=== PATIENT | male | born 1955 | race Caucasian/White ===

== ENCOUNTER 2024-08-31 09:54 | Outpatient (REF) | payer MEDICARE, SELFPAY ==
[2024-08-31 10:27] LABS: MANUAL DIFF FLAG NO
[2024-08-31 11:29] LABS: Basophils Percent Auto 0.5 % (0-2); Eosinophils Absolute Auto 0.3 X10*3/uL (0.0-0.4); Eosinophils Percent Auto 3.2 % (0-4); Hemoglobin 14.3 g/dl (14.0-18.0); Imm Gran Abs Auto 0.04 X10*3/uL (0.00-0.03); Imm Gran Pct Auto 0.5 % (0.0-0.4); Lymphocytes Absolute Auto 2.2 X10*3/uL (1.2-4.9); Lymphocytes Percent Auto 28.2 % (20-40); Mean Corpuscular HGB Conc 35.8 g/dl (31.0-36.0); Mean Corpuscular Volume 86.6 fL (80.0-98.0); Mean Platelet Volume 9.7 fL (9.4-12.4); Monocytes Absolute Auto 0.7 X10*3/uL (0.1-1.2); Monocytes Percent Auto 8.5 % (2-11); Neutrophils Absolute Auto 4.6 x10*3/uL (2.0-8.3); Neutrophils Percent Auto 59.1 % (45-73); Platelet Count 343 X10*3/uL (160-400); Red Blood Count 4.62 X10*6/uL (4.60-5.80); Red Cell Distribution Width 11.9 % (11.0-16.0); White Blood Count 7.8 X10*3/uL (4.8-10.8)
[2024-08-31 12:07] LABS: Erythrocyte Sedimentation Rate 34 MM/HR (0-15)
[2024-08-31 12:17] LABS: Alanine Aminotransferase 18 U/L (0-40); Aspartate Amino Transferase 23 U/L (5-37); C Reactive Protein 1.98 mg/dL (< or = 0.50); Estimated Glomerular Filt Rate > 60
[2024-09-01 08:46] LABS: HBS Num1 0.76 mIU/mL (0-7.99); HBc Num1 0.13 S/CO (0.00-0.79); Hepatitis B Core Antibody Nonreactive (Nonreactive); Hepatitis B Surface Antigen Negative (Negative); ~HepC Num1 0.09 S/CO (0.00-0.79); ~Hepatitis B Surface Antibody NONREACTIVE (Nonreactive); ~Hepatitis C Antibody Nonreactive (Nonreactive)
[2024-09-03 11:09] LABS: TS Negative Control Passed; TS Panel A 3; TS Panel B 3; TS Positive Control Passed; TSpotTB Negative (Negative)
== END 2024-08-31 09:55 | disposition home or self-care (01) ==
LOC: HO.LAB 09:54
PROVIDERS: PCP Internal Medicine; Visit Provider Internal Medicine Rheumatology
DX: M06.9 Rheumatoid arthritis, unspecified (principal); Z79.899 Other long term (current) drug therapy
CPT/HCPCS: 36415; 82565; 84450; 84460; 85025; 85652; 86140; 86481; 86704; 86706; 86803; 87340

== ENCOUNTER 2024-09-11 10:20 | Outpatient (AMB) | payer MEDICARE, MEDICAID, SELFPAY ==
--- NOTE | 2024-09-11 10:40 | MHC.OFFVIS ---
Vital Signs 09/11/24 10:43 Height 5 ft 8 in Weight 189 lb 9.561 oz BMI 28.8 BP 150/80 H Blood Pressure Location Lt brachial Position Sitting Pulse 100 Pulse Source Pulse Oximeter Pulse Oximetry (%) 99 Oxygen Delivery Method Room Air Intake Visit Reasons: RA/ATC MR RECIEVED Intake Note: Patient presents for RA. Past three weeks I have been in lots of pain on both shoulders and neck. Swelling on both hands, both wrist and both feet. Can't sleep. Allergies No Known Allergies Allergy (Verified 09/11/24 10:44) HPI HPI RA/ATC MR RECIEVED: Details: He has not had Orencia infusion in 4 months. He had a high co-pay at [facility] and reports that he had a bili of 2000 dollars because insurance did not cover infusions. He reports that every infusion he asked if it was covered in was told that it was. He has limited function. Hands are swollen. Last week he had pain in his feet with walking. Symptoms got worse 2 weeks ago. He is unable to do anything. He is unable to cook for Thanksgiving because he can not use his hand. Morning stiffness lasting all day. No recent infections. [facility] Surgical History (Updated 09/11/24 @ 10:51 by CHAU Thacker) History of appendectomy History of surgery on right wrist Family History (Updated 09/11/24 @ 10:50 by CHAU Thacker) Mother History of arthritis Father History of COPD Social History (Updated 09/11/24 @ 10:48 by CHAU Thacker) Household Members: None Housing: House Alcohol intake: current Comment: [facility] Patient Tobacco Use Status: Current someday Tobacco user Tobacco use type: Cigarette Cigarettes Per Day: 0.25 Years Smoked: 40 Review of Systems Const All systems reviewed & are unremarkable except as noted in HPI and below Physical Exam Vital Signs: Last Vital Signs Pulse 100 09/11/24 10:43 BP 150/80 H 09/11/24 10:43 Pulse Ox 99 09/11/24 10:43 Oxygen Delivery Method Room Air 09/11/24 10:43 BMI result Body Mass Index 28.8 Const Other: General: Comfortable CVS: RRR Respiratory: clear to auscultation bilaterally. Good respiratory effort Skin: No lesions seen MSK: Synovitis of bilateral MCPs, PIP knees and wrists. Unable to make a fist with hands. Unable to extend or flex wrist due to pain. He is unable to abduct bilateral shoulders above 90 degrees due to pain. Tender bilateral shoulders. Tender bilateral knees and ankles. Knee flexion is 45 degrees limited due to pain. No MTP tenderness. Results Reviewed Results Reviewed: Labs from 09/04/2024 reviewed in EMR. Elevated inflammatory markers. Assessment & Plan Assessment & Plan (1) Rheumatoid arthritis: Comment: History of rheumatoid arthritis failed methotrexate and was well controlled on Orencia infusion since 2016. He has not had Orencia infusion in 4 months. In the past he did not tolerate leflunomide, which he took from 02/03/2024 to 03/04/2024 due to constipation. Inflammatory arthritis is uncontrolled off of Orencia infusion. He has limited function. Code(s): M06.9 - Rheumatoid arthritis, unspecified Category: Medical Plan: I have ordered Orencia infusion through the infusion center 09/09/2024. I have sent a message to clinical staff to contact infusion center to expedite scheduling. If insurance does not cover Orencia infusion, we will try to do PA for an Orencia sure click subcutaneous injection. Labs up-to-date for drug monitoring and high-risk medication Start prednisone 20 mg daily take with food Start GI prophylaxis omeprazole 20 mg daily while on prednisone Return to clinic in 1 month (2) Other snf (current) drug therapy: Code(s): Z79.899 - Other snf (current) drug therapy Category: Medical Plan: See above Medications: New prednisone Take 1 tablet daily with food 20 mg PO DAILY 30 tabs 1RF M06.9 - Rheumatoid arthritis, unspecified, Z79.899 - Other dedicated intermodal truck driver (current) drug therapy omeprazole Take 1 tablet daily in the morning on an empty stomach while on prednisone 20 mg PO DAILY 30 caps 2RF Coding Level of Care Code Est Pt Level 4 (44742) Complex EM visit Add On G2211 Diagnoses Rheumatoid arthritis M06.9 Other dedicated intermodal truck driver (current) drug therapy Z79.899
[2024-09-11 10:43] VITALS: BP 150/80; PULSE 100; O2SAT 99; BMI 28.8
== END 2024-09-11 11:17 | disposition home or self-care (01) ==
PROVIDERS: PCP Internal Medicine; Visit Provider Internal Medicine Rheumatology
DX: M06.9 Rheumatoid arthritis, unspecified (principal); Z79.899 Other long term (current) drug therapy
CPT/HCPCS: 99214; G2211

== ENCOUNTER → 2024-09-11 10:20 | Outpatient (BNVA) | payer MEDICARE, MEDICAID, SELFPAY | PROVIDERS: PCP Internal Medicine; Visit Provider Internal Medicine Rheumatology | DX: M06.9 Rheumatoid arthritis, unspecified (principal); Z79.899 Other long term (current) drug therapy | CPT/HCPCS: 99212 ==

== ENCOUNTER 2025-01-07 10:14 | Outpatient (REF) | payer MEDICARE, SELFPAY ==
[2025-01-07 18:03] LABS: MANUAL DIFF FLAG NO
[2025-01-07 18:29] LABS: Basophils Percent Auto 0.5 % (0-2); Eosinophils Absolute Auto 0.3 X10*3/uL (0.0-0.4); Eosinophils Percent Auto 4.5 % (0-4); Hematocrit 40.4 % (42.0-52.0); Hemoglobin 13.8 g/dl (14.0-18.0); Imm Gran Abs Auto 0.01 X10*3/uL (0.00-0.03); Imm Gran Pct Auto 0.2 % (0.0-0.4); Lymphocytes Absolute Auto 2.8 X10*3/uL (1.2-4.9); Lymphocytes Percent Auto 41.5 % (20-40); Mean Corpuscular HGB Conc 34.2 g/dl (31.0-36.0); Mean Corpuscular Hemoglobin 29.8 pg (27.0-33.0); Mean Corpuscular Volume 87.3 fL (80.0-98.0); Mean Platelet Volume 10.3 fL (9.4-12.4); Monocytes Absolute Auto 0.5 X10*3/uL (0.1-1.2); Monocytes Percent Auto 8.1 % (2-11); Neutrophils Percent Auto 45.2 % (45-73); Platelet Count 314 X10*3/uL (160-400); Red Blood Count 4.63 X10*6/uL (4.60-5.80); Red Cell Distribution Width 12.8 % (11.0-16.0); White Blood Count 6.6 X10*3/uL (4.8-10.8)
[2025-01-07 18:47] LABS: Alanine Aminotransferase 19 U/L (0-40); Aspartate Amino Transferase 21 U/L (5-37); C Reactive Protein 0.64 mg/dL (< or = 0.50); Estimated Glomerular Filt Rate > 60
[2025-01-07 19:59] LABS: Erythrocyte Sedimentation Rate 23 MM/HR (0-15)
== END 2025-01-07 10:15 | disposition home or self-care (01) ==
LOC: HO.HKASLDS 10:14
PROVIDERS: PCP Internal Medicine; Visit Provider Internal Medicine Rheumatology
DX: Z79.60 Long term (current) use of unspecified immunomodulators and immunosuppressants (principal); Z79.899 Other long term (current) drug therapy
CPT/HCPCS: 36415; 82565; 84450; 84460; 85025; 85652; 86140; 99212

== ENCOUNTER 2025-01-07 10:14 | Outpatient (AMB) | payer MEDICARE, MEDICAID, SELFPAY ==
--- NOTE | 2025-01-07 10:17 | MHC.OFFVIS ---
Vital Signs 01/07/25 10:21 Weight 194 lb 10.691 oz BP 150/82 H Pulse 72 Pulse Source Pulse Oximeter Pulse Oximetry (%) 97 Oxygen Delivery Method Room Air Intake Visit Reasons: follow up Intake Note: Patient presents for RA. Allergies No Known Allergies Allergy (Verified 01/07/25 10:22) [facility] HPI follow up: Details: He had increased joint pain and stiffness in September where he had difficulty getting out of bed. He only took prednisone for a couple of days with relief and he was able to walk. 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 After last infusion he has noted a decrease in pain and swelling. No new infections. [facility] Surgical History History of appendectomy History of surgery on right wrist Family History Mother History of arthritis Father History of COPD Social History Household Members: None Housing: House Alcohol intake: current Comment: [facility] Patient Tobacco Use Status: Current someday Tobacco user Tobacco use type: Cigarette Cigarettes Per Day: 0.25 Years Smoked: 40 Review of Systems Const All systems reviewed & are unremarkable except as noted in HPI and below Physical Exam Vital Signs: Last Vital Signs Pulse 72 01/07/25 10:21 BP 150/82 H 01/07/25 10:21 Pulse Ox 97 01/07/25 10:21 Oxygen Delivery Method Room Air 01/07/25 10:21 Const Other: General: Comfortable CVS: RRR Respiratory: clear to auscultation bilaterally. Good respiratory effort Skin: No lesions seen MSK: Synovitis of bilateral right 2nd and 3rd PIP and left 2-4 PIPs and bilateral wrists. Chronic synovial thickening of bilateral MCPs. He is able to make a fist with both hands. Shoulder abduction 160 degrees bilateral. Tender bilateral shoulders. Tender bilateral knees and ankles. Knee flexion is 90 degrees limited due to pain. No MTP tenderness. Assessment & Plan Assessment & Plan (1) Rheumatoid arthritis: Comment: He continues to have polyarthritis but better controlled since being on Orencia infusion. He is fearful of long-term side effects on prednisone. He agreed to try Depo-Medrol this visit. Rheumatology history: History of rheumatoid arthritis failed methotrexate and was well controlled on Orencia infusion since 2016. In the past he did not tolerate leflunomide, which he took from 02/03/2024 to 03/04/2024 due to constipation. Code(s): M06.9 - Rheumatoid arthritis, unspecified Category: Medical Plan: Continue Orencia infusion every 4 weeks IV Labs for disease monitoring and drug monitoring on high-risk medication due today Depo-Medrol 120 mg IM today Return to clinic in 3 months (2) Other nursing home (current) drug therapy: Code(s): Z79.899 - Other nursing home (current) drug therapy Category: Medical Plan: See above Orders: Orders Complete Blood Count Auto Diff Today Z79.60 - superintendent terminal (current) use of unspecified immunomodulators and immunosuppressants C Reactive Protein Today Z79.899 - Other termite exterminator (current) drug therapy Alanine Aminotransferase Today Z79.60 - superintendent terminal (current) use of unspecified immunomodulators and immunosuppressants Creatinine Today Z79.60 - prison (current) use of unspecified immunomodulators and immunosuppressants Aspartate Amino Transferase Today Z79.60 - superintendent terminal (current) use of unspecified immunomodulators and immunosuppressants Erythrocyte Sedimentation Rate Today Z79.899 - Other nursing home (current) drug therapy Coding Level of Care Code Est Pt Level 4 (59799) Complex EM visit Add On G2211 Diagnoses Rheumatoid arthritis M06.9 Other termite exterminator (current) drug therapy Z79.899
[2025-01-07 10:21] VITALS: BP 150/82; PULSE 72; O2SAT 97
--- OUTSIDE RECORDS SUMMARY | 2025-01-07 12:17 | XMS_ITS | Clinical Summary ---
Author Organization 175 [facility] Address [address] [place] [address] Phone Care Team Providers Care Full Time Name Role Phone Chiqui Cummings MD Primary Care Provider [phone] Allergies Active Allergy Reactions Criticality Noted Date Comments Bee Venom Protein (Honey Bee) 2017 Medications abatacept (ORENCIA) 25 mg/mL injection Inject 250 mg into the vein See Admin Instructions . 9 Active albuterol HFA (PROAIR HFA ; PROVENTIL HFA ; VENTOLIN HFA) 90 mcg/actuation inhaler Inhale 2 Puffs into the lungs every 4 hours as needed for Cough or Wheezing. 0 Active omeprazole (PriLOSEC) [address] capsule Take 1 Capsule by mouth daily for 360 days. 2 Active polyethylene glycol 1000,bulk, powder DISSOLVE 17 GRAMS IN LIQUID AND TAKE BY MOUTH EVERY DAY 2 Active atorvastatin (LIPITOR) 20 mg tablet Take 1 tablet (20 mg total) by mouth at bedtime. 90 tablet 3 4 Active losartan (COZAAR) 100 mg tablet Take 1 tablet (100 mg total) by mouth 1 (one) time each day. 90 tablet 5 4 Active fluticasone-um eclidinium-chirag anterol (Trelegy Ellipta) 200-62.5-25 mcg inhaler INHALE 1 PUFF INTO THE LUNGS DAILY 1 each 4 025 Active ALPRAZolam (XANAX) 0.5 mg tablet Take 1 tablet (0.5 mg total) by mouth 3 (three) times a day if needed for anxiety. Max Daily Amount: 1.5 mg 56 tablet 1 5 Active traMADoL (ULTRAM) 50 mg tablet Take 1 tablet (50 mg total) by mouth every 6 (six) hours if needed for severe pain. Max Daily Amount: 200 mg 28 tablet 1 5 Active traMADoL (ULTRAM) 50 mg tabletIndicati ons:pain Take 1 tablet (50 mg total) by mouth 1 (one) time each day if needed for severe pain. Max Daily Amount: 50 mg 28 tablet 4 025 Discontinued Active Problems Problem Noted Date Diagnosed Date Hyperlipidemia 07/29/2022 Hypertension 07/29/2022 Prediabetes 07/29/2022 Aorta aneurysm 12/02/2020 Colon polyps 05/07/2018 Lymphadenopathy, hilar 04/20/2018 Esophageal reflux 02/09/2017 Rosacea 02/09/2017 Rheumatoid arthritis 02/09/2017 Vitamin D deficiency 01/30/2015 Anxiety 12/30/2013 Lower back pain 11/27/2013 Immunizations Name Administration Dates Next Due Influenza trivalent, 0.5mL (Fluad) 65yo and olde r 07/29/2022,07/10/2020 Influenza trivalent, 0.5mL, preservative free (Fluarix; FluLaval; Fluzone) ages 6mo and older (Afluria) 3 years and older 08/04/2016,07/22/2014 PPD Test 01/18/2010 Pneumococcal conjugate 13 va lent (Prevnar 13, PCV13) 2mo and older 02/12/2018 Medical History Medical History Date Comments Hypertension 07/29/2022 DX:Hypertension Hyperlipidemia 07/29/2022 DX:Hyperlipidemi a Social History Tobacco Use Types Packs/Day Years Used Date Smoking Tobacco: Every Day Cigarettes Last attempted to quit: 04/12/2021 Smokeless Tobacco: Never Alcohol Use Standard Drinks/Week Comments Yes 10 (1 standard drink = 0.6 oz pu re alcohol) Sex and Gender Information Value Date Recorded Sex Assigned at Not on file Legal Sex Male 10:43 AM EST Gender Identity Not on file Sexual Orientation Not on file Obstetrics History Last Filed Vital Signs Vital Sign Reading Time Taken Comments Blood Pressure 123/70 09/09/2024 9:43 AM EST Pulse 95 09/09/2024 9:39 AM EST Temperature 37.2 ??C (98.9 ??F) 09/09/2024 9:39 AM ES T Respiratory Rate - - Oxygen Saturation 96% 09/09/2024 9:39 AM EST Inhaled Oxygen Concentration - - Weight 84.4 kg (186 lb) 09/09/2024 9:39 AM EST Height 172.7 cm (5' 8 ) 09/09/2024 9:39 AM EST Body Mass Index 28.28 09/09/2024 9:39 AM EST Plan of Treatment Upcoming Encounters Date Type Department Care Team (Late st Contact Info) Description 03/12/2025 9:30 AM EDT Office Visit Internal Medicine - [place] [address] [phone] Chiqui Cummings MD [address] [phone] 08/07/2025 9:45 AM EDT Office Visit Pulmonolgy - [place] [address] [phone] Ines Magana MD [address] [phone] Health Maintenance Due Date Last Done Comments DTaP,Tdap,and Td Vaccines (1 - Tdap) 1974 Zoster Vaccines (1 of 2) 2005 RSV Immunization Patients 60+ Years Old (1 - Risk 60-74 years 1-dose series) 2015 Pneumococcal Vaccine: 50+ Years (2 of 2 - PPSV23) 04/09/2018 02/12/2018 Social Influencers of Health Screening 09/24/2022 COVID-19 Vaccine ( - season) 2024 09/21/2021, 02/08/2021, 01/18/2021 Hypertension/CHF/CAD Annual BMP Blood Test 07/31/2024 07/31/2023 Depression Screening 09/09/2025 09/09/2024, 08/17/20 Falls Risk Assessment 09/09/2025 09/09/2024 Medicare Annual Wellness Visit 09/09/2025 09/09/2024 Cholesterol Screening (Lipid Panel) 07/31/2028 07/31/2023 Colorectal Cancer Screening: Colonoscopy 01/17/2029 01/18/2024 Abdominal Aortic Aneurysm (AAA) Screen Completed 12/08/2021 Hepatitis C Screening Completed 07/31/2023 Influenza Vaccine Completed 07/12/2024, , 07/10/2020, Additional history exists HIB Vaccines Aged Out No longer eligi ble based on patient's age to complete this topic HPV Vaccines Aged Out No longer eligi ble based on patient's age to complete this topic Hepatitis A Vaccines Aged Out No long er eligible based on patient's age to complete this topic Hepatitis B Vaccines Aged Out No long er eligible based on patient's age to complete this topic IPV Vaccines Aged Out No longer eligi ble based on patient's age to complete this topic MMR Vaccines Aged Out No longer eligi ble based on patient's age to complete this topic Meningococcal ACWY Vaccine Aged Out N o longer eligible based on patient's age to complete this topic Meningococcal B Vacine Aged Out No lo nger eligible based on patient's age to complete this topic RSV Immunization Patients Under 20 months Aged Out No longer eligible based on patient's age to complete this topic Varicella Vaccines Aged Out No longer eligible based on patient's age to complete this topic Procedures Procedure Name Priority Date/Time Associated Diagnosis Comments COLONOSCOPY Routine 01/18/2024 DEPRESSION SCREENING Routine 08/17/2023 HEPATITIS C SCREENING Routine 07/31/2023 ANNUAL BMP BLOOD TEST Routine 07/31/2023 LIPID PANEL Routine 07/31/2023 ABDOMINAL AORTIC ANEURYSM SCRREN Routine 12/08/2021 from Last 3 Months or Most Recently Relevant to Health Maintenance Results * Colonoscopy (01/18/2024) Pathologist [facility] Colonoscopy NO INTERPRETATION , ABSTRACTED Anatomical Region Laterality Modality Other [facility] Provider HEALTH MAINTENANCE Final Result * Depression Screening (08/17/2023) Pathologist [facility] Depression Screening ABSTRACTED [facility] Provider HEALTH MAINTENANCE Final Result * Annual BMP Blood Test (07/31/2023) Pathologist [facility] Annual BMP Blood Test ABSTRACTED [facility] Provider HEALTH MAINTENANCE Final Result * Hepatitis C Screening (07/31/2023) [facility] Hepatitis C Screening ABSTRACTED Result [facility] Provider HEALTH MAINTENANCE Final Result * Lipid panel (07/31/2023) [facility] LDL/HDL Ratio 3 0 - 4 Triglycerides 59 0 - 150 mg/dL Cholesterol 151 0 - 200 mg/dL HDL 58 >=40 mg/dL LDL Cholesterol 82 0 - 100 mg/dL Blood Venous blood specimen / Unknown Result [facility] Provider LAB BLOOD ORDERABLES Corie l Result * Abdominal Aortic Aneurysm Screen (12/08/2021) Pathologist [facility] Abdominal Aortic Aneurysm (AAA) Screening ABSTRACTED Anatomical Region Laterality Modality Other Result [facility] Provider HEALTH MAINTENANCE Final Result from Last 3 Months or Most Recently Relevant to Health Maintenance Insurance [employer] [place] Care Teams Full Time Relationship Specialty Start Date End Date Chiqui Cummings MD [address] [place] [phone] PCP - General Internal Medicine 08/28/20
--- OUTSIDE RECORDS SUMMARY | 2025-01-07 12:17 | XMS_ITS | Clinical Summary ---
Author Organization [facility] Address [address] [place] [address] Care Team Providers Care Rfid Systems Architect Name Role Phone Chiqui Cummings MD Primary Care Provider [phone] Allergies No known active allergies Medications Medication Sig Dispensed Refills Start Date End Date Status traMADol (ULTRAM) 50 MG tablet Take 50 mg by mouth 2 (two) times a day as needed. 0 10/07/2022 Active losartan (COZAAR) tablet 50 mg Take 1 tablet (50 mg total) by mouth daily. 0 08/10/2022 Active ALPRAZolam (XANAX) 0.5 MG tablet Take 1 tablet (0.5 mg total) by mouth 2 (two) times a day. 0 10/12/2022 Active atorvastatin (LIPITOR) tablet 20 mg Take 1 tablet (20 mg total) by mouth daily. 0 08/10/2022 Active Trelegy Ellipta 200-62.5-25 MCG/ACT AEPB INHALE 1 PUFF INTO THE LUNGS DAILY 0 10/12/2022 Active omeprazole (PriLOSEC) 20 MG capsule Take 1 capsule (20 mg total) by mouth daily. 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 Rheumatoid arthritis with rheumatoid factor 06/2022 Social History Tobacco Use Types Packs/Day Years Used Date Smoking Tobacco: Never Assessed Sex and Gender Information Value Date Recorded Sex Assigned at Male 03/09/2022 2:52 PM EDT Gender Identity Not on file Sexual Orientation Not on file Job Start Date Occupation Industry Not on file Not on file Not on file Last Filed Vital Signs Vital Sign Reading Time Taken Comments Blood Pressure 152/76 06/30/2023 2:29 PM EDT Pulse 80 06/30/2023 2:29 PM EDT Temperature 35.8 ??C (96.5 ??F) 06/30/2023 2:29 PM ED T Respiratory Rate 18 06/30/2023 2:29 PM EDT Oxygen Saturation 99% 06/30/2023 2:29 PM EDT ROOM AIR Inhaled Oxygen Concentration - - Weight 84.9 kg (187 lb 3.2 oz) 06/02/2023 1:56 P M EDT Height 172.7 cm (5' 7.99 ) 11/11/2022 1:47 PM ES T Body Mass Index 28.47 11/11/2022 1:47 PM EST Plan of Treatment Health Maintenance Due Date Last Done Comments Hepatitis C Screening 1955 COVID-19 Vaccine (#1) 1955 Depression Screening 1967 Preventative Health Evaluation 1973 DTap / Tdap / Td (1 - Tdap) 1974 Colon Cancer Screening (Colonoscopy) 02/28/2000 Shingrix-Zoster Vaccine (1 o f 2) 2005 Fall Risk Assessment 02/28/2020 Pneumococcal Vaccine (2 of 2 - PPSV23 or PCV20) 02/28/2020 02/12/2018 Influenza Vaccine (#1) 2024 2, 07/10/2020 RSV Adult > 60+ Yrs or (1 - 1-dose 75+ series) 2030 Hepatitis B Vaccines Aged Out No long er eligible based on patient's age to complete this topic RSV Ped < 20 months Aged Out No longe r eligible based on patient's age to complete this topic Care Teams Rfid Systems Architect Relationship Specialty Start Date End Date Chiqui Cummings MD [address] [phone] PCP - General Internal Medicine 03/09/22
--- NOTE | 2025-01-07 12:29 | AM.OFFVISNUR ---
Vital Signs 01/07/25 10:21 Weight 194 lb 10.691 oz BP 150/82 H Pulse 72 Pulse Source Pulse Oximeter Pulse Oximetry (%) 97 Oxygen Delivery Method Room Air Intake Visit Reasons: follow up Allergies No Known Allergies Allergy (Verified 01/07/25 10:22) Nursing Note Depo Medrol IM injection 80 mg Single dose vial Lot [id number] Expiration 03/2026 injected into Right Deltoid Depo Medrol IM Injection 40 mg Single dose vial [id number] Expiration 03/2026 injected into Left Deltoid [facility] Di [facility]AN, RN Patient tolerated procedure well. No injection site reaction noted. Assessment & Plan Assessment & Plan (1) Rheumatoid arthritis: Comment: He continues to have polyarthritis but better controlled since being on Orencia infusion. He is fearful of long-term side effects on prednisone. He agreed to try Depo-Medrol this visit. Rheumatology history: History of rheumatoid arthritis failed methotrexate and was well controlled on Orencia infusion since 2015. In the past he did not tolerate leflunomide, which he took from 02/03/2024 to 03/04/2024 due to constipation. Code(s): M06.9 - Rheumatoid arthritis, unspecified Category: Medical (2) Other intermodal dispatcher (current) drug therapy: Code(s): Z79.899 - Other residential (current) drug therapy Category: Medical Orders: Orders Complete Blood Count Auto Diff Today Z79.60 - remote computer terminal operator (current) use of unspecified immunomodulators and immunosuppressants C Reactive Protein Today Z79.899 - Other intermodal dispatcher (current) drug therapy Alanine Aminotransferase Today Z79.60 - remote computer terminal operator (current) use of unspecified immunomodulators and immunosuppressants Creatinine Today Z79.60 - remote computer terminal operator (current) use of unspecified immunomodulators and immunosuppressants Aspartate Amino Transferase Today Z79.60 - skilled nursing (current) use of unspecified immunomodulators and immunosuppressants Erythrocyte Sedimentation Rate Today Z79.899 - Other residential (current) drug therapy Coding Diagnoses Rheumatoid arthritis M06.9 Other intermodal dispatcher (current) drug therapy Z79.899
== END 2025-01-07 11:00 | disposition home or self-care (01) ==
LOC: HO.RHES 10:15
PROVIDERS: PCP Internal Medicine; Visit Provider Internal Medicine Rheumatology
DX: M06.9 Rheumatoid arthritis, unspecified (principal); Z79.899 Other long term (current) drug therapy
CPT/HCPCS: 99214; G2211

== ENCOUNTER 2025-06-18 09:29 | Outpatient (REF) | payer MEDICARE, SELFPAY ==
[2025-06-18 13:02] LABS: MANUAL DIFF FLAG NO
[2025-06-18 13:10] LABS: Hematocrit 38.5 % (42.0-52.0); Hemoglobin 13.7 g/dl (14.0-18.0); Imm Gran Abs Auto 0.04 X10*3/uL (0.00-0.03); Imm Gran Pct Auto 0.8 % (0.0-0.4); Lymphocytes Absolute Auto 2.3 X10*3/uL (1.2-4.9); Mean Corpuscular HGB Conc 35.6 g/dl (31.0-36.0); Mean Corpuscular Hemoglobin 30.6 pg (27.0-33.0); Mean Corpuscular Volume 86.1 fL (80.0-98.0); NRBC Abs Auto 0.000 X10*3/uL (0.0-0.012); NRBC Pct Auto 0.0 /100WBC (0.0-0.2); Platelet Count 288 X10*3/uL (160-400); Red Blood Count 4.47 X10*6/uL (4.60-5.80); White Blood Count 5.2 X10*3/uL (4.8-10.8)
[2025-06-18 13:52] LABS: Alanine Aminotransferase 20 U/L (0-40); Aspartate Amino Transferase 25 U/L (5-37); Estimated Glomerular Filt Rate > 60
== END 2025-06-18 09:30 | disposition home or self-care (01) ==
LOC: HO.HKASLDS 09:29
PROVIDERS: PCP Internal Medicine; Visit Provider Internal Medicine Rheumatology
DX: M06.9 Rheumatoid arthritis, unspecified (principal); M25.511 Pain in right shoulder; M25.512 Pain in left shoulder; Z51.81 Encounter for therapeutic drug level monitoring; Z79.899 Other long term (current) drug therapy; Z79.631 Long term (current) use of antimetabolite agent
CPT/HCPCS: 36415; 82565; 84450; 84460; 85025; 85652; 86140; 99212

== ENCOUNTER 2025-06-18 09:29 | Outpatient (AMB) | payer MEDICARE, SELFPAY ==
[2025-06-18 09:41] VITALS: BP 140/90; PULSE 71; O2SAT 99; BMI 29.9
--- NOTE | 2025-06-18 09:41 | A.OFFVIS_ITS ---
Vital Signs 06/18/25 09:41 Height 5 ft 8 in Weight 196 lb 13.965 oz BMI 29.9 BP 140/90 H Blood Pressure Location Rt brachial Position Sitting Pulse 71 Pulse Source Pulse Oximeter Pulse Oximetry (%) 99 Oxygen Delivery Method Room Air Intake Visit Reasons: follow up Intake Note: Patient presents for RA. Accompanied by: Self / Same As Patient Allergies No Known Allergies Allergy (Verified 01/07/25 10:22) HPI HPI follow up: Details: He had benefit with depomedrol. Hand stiffness hours. He has pain in shoulders. Improved with stretching. [facility] Surgical History History of appendectomy History of surgery on right wrist Family History Mother History of arthritis Father History of COPD Social History Household Members: None Housing: House Alcohol intake: current Comment: OCC Patient Tobacco Use Status: Current someday Tobacco user Tobacco use type: Cigarette Cigarettes Per Day: 0.25 Years Smoked: 40 Physical Exam Vital Signs: Last Vital Signs Pulse 71 06/18/25 09:41 BP 140/90 H 06/18/25 09:41 Pulse Ox 99 06/18/25 09:41 Oxygen Delivery Method Room Air 06/18/25 09:41 BMI result Body Mass Index 29.9 Const Other: General: Comfortable CVS: RRR Respiratory: clear to auscultation bilaterally. Good respiratory effort Skin: No lesions seen MSK: Synovitis of bilateral right 2nd and 3rd PIP with tenderness. Chronic synovial thickening has resolved. Dorsal wrist right ganglion cyst present. He is able to make a fist with both hands. Shoulder abduction 160 degrees bilateral. Tender bilateral shoulders. Knee flexion is 90 degrees limited due to pain. No MTP tenderness. Assessment & Plan Assessment & Plan (1) Rheumatoid arthritis: Comment: Inflammatory arthritis has improved after Depo-Medrol. We discussed next steps with add on DMARD therapy. Discussed side effects, benefits and drug monitoring on methotrexate. Rheumatology history: History of rheumatoid arthritis failed methotrexate and was well controlled on Orencia infusion since 2016. In the past he did not tolerate leflunomide, which he took from 02/03/2024 to 03/04/2024 due to constipation. He has been fearful of long-term side effect on prednisone. Depo-Medrol provided benefit in the past. Code(s): M06.9 - Rheumatoid arthritis, unspecified Category: Medical Plan: Continue Orencia infusion every 4 weeks IV Labs for disease monitoring and drug monitoring on high-risk medication due today. After lab results are back, we will send prescription for methotrexate 12.5 mg once weekly and folic acid 1 mg daily. He we will need labs 4 weeks after starting methotrexate Information on methotrexate given to patient Return to clinic in 3 months (2) Other prison (current) drug therapy: Code(s): Z79.899 - Other prison (current) drug therapy Category: Medical Plan: See above (3) Bilateral shoulder pain: Comment: Differential diagnosis includes chronic rotator cuff tendinopathy versus osteoarthritis Code(s): M25.511 - Pain in right shoulder; M25.512 - Pain in left shoulder Category: Medical Plan: X-ray bilateral shoulders ordered PT ordered Orders: Orders Alanine Aminotransferase Today Z79.899 - Other prison (current) drug therapy Erythrocyte Sedimentation Rate Today Z79.899 - Other prison (current) drug therapy PT Evaluation and Treatment Today M25.511 - Pain in right shoulder, M25.512 - Pain in left shoulder Complete Blood Count Auto Diff Today Z79.899 - Other prison (current) drug therapy Aspartate Amino Transferase Today Z79.899 - Other intermediate frame tender (current) drug therapy Creatinine Today Z79.899 - Other intermediate frame tender (current) drug therapy C Reactive Protein Today Z79.899 - Other intermediate frame tender (current) drug therapy XR Shoulder Timo min 2V Today M06.9 - Rheumatoid arthritis, unspecified, M25.511 - Pain in right shoulder, M25.512 - Pain in left shoulder XR Hand Bilat min 3v Today M06.9 - Rheumatoid arthritis, unspecified XR Foot Timo 3V Today M06.9 - Rheumatoid arthritis, unspecified, M25.511 - Pain in right shoulder, M25.512 - Pain in left shoulder Coding Level of Care Code Est Pt Level 4 (78997) Complex EM visit Add On G2211 Diagnoses Rheumatoid arthritis M06.9 Other prison (current) drug therapy Z79.899 Bilateral shoulder pain M25.511; M25.512
--- OUTSIDE RECORDS SUMMARY | 2025-06-18 10:17 | XMS_ITS | Encounter Summary ---
Author Organization [facility] Address [address] [place] [address] Care Team Providers Care Retail Special Event Associate Name Role Phone Chiqui Cummings MD Primary Care Provider [phone] Reason for Referral * Consultation (Routine) - Authorized Specialty Diagnoses / Procedures Referred By Elia kowalski Referred To Contact Cardiology Diagnoses CAD (coronary artery disease) Chiqui Cummings MD [address] [place] [address] [facility] - [facility] [address] [facility] [address] [place] [address] Phone: tel: fax: Referral ID Status Reason Start Date Expiration Date Visits Requested Visits Authorized [id number] Authorized Specialty Services Required 06/18/2025 06/18/2026 6 6 Reason for Visit * Reason Onset Date Comments Referral 06/17/2025 Cardiology Insur ance Referral Encounter Details Date Type Department Care Team (Late st Contact Info) Description 06/17/2025 Telephone Internal Medicine - [address] [place] [address] Chiqui Cummings MD [address] [place] [address] Social History Tobacco Use Types Packs/Day Years [...] on file Sexual Orientation Not on file documented as of this encounter Progress Notes * Katy Chiki - 06/17/2025 1:02 PM EDT What insurance does the patient have today? [facility]or: [facility]/@[facility]@ Referrals cannot be processed if the insurance is not accurate. If the insurance listed above is NO BILLING INFORMATION FOUND FOR THIS ENCOUNTER then the patients correct insurance must be obtainedand registered in [facility] or their referral can not be processed. Name of person calling to request this referral? Fax [facility]erred To Provider (Include [facility] and [facility] NPI (if known): [id number] Order/Specialty requested cardiology Chief Complaint (Note: This is not a body part or a procedure): I25.10 CAD Has the patient seen provider for this problem/Dx before? Referred To Provider Address: [address] Referred To Provider Referred To Provider Does patient have an appointment scheduled?: yes If yes, what is the date of the appointment?: 06/26/25 Is this a retro request? no Number of visits requested: 6 Is this appointment related to: MVA or worker compensation? no documented in this encounter Plan of Treatment Upcoming Encounters Date Type Department Care Team (Late st Contact Info) Description 06/26/2025 12:45 PM EDT Office Visit Internal Medicine - [place] [address] [facility] [address] [place] [phone] Chiqui Cummings MD [address] [place] [address] 06/26/2025 3:30 PM EDT Ancillary Procedure [facility] - [address] [place] [phone] 08/01/2025 4:45 PM EDT Appointment [facility] CT Scan [address] [place] [phone] 08/07/2025 9:45 AM EDT Office Visit Pulmonolgy - [place] 175 [facility] 200 [place] [phone] Ines Magana MD [address] [place] [phone] Scheduled Referrals Name Type Priority Associated Diagnoses Order Schedule Ambulatory referral to Cardiology Outpatient Referral Routine CAD (coronary artery disease) Expected: 06/17/2025, Expires: 06/17/2026 documented as of this encounter Visit Diagnoses Diagnosis CAD (coronary artery disease)- Primary Coronary atherosclerosis of unspecified type of vessel, salt river or graft documented in this encounter Additional Health Concerns Assessment Noted Time PHQ-9 Depression Total Score: 0 09/09/20 24 9:37 AM EST A fall risk assessment has been complete d for the patient 09/09/2024 9:36 AM EST documented as of this encounter Care Teams Retail Special Event Associate Relationship Specialty Start Date End Date Chiqui Cummings MD 175 [facility] 200 [place] [phone] PCP - General Internal Medicine 08/28/20 documented as of this encounter
--- OUTSIDE RECORDS SUMMARY | 2025-06-18 10:17 | XMS_ITS | Clinical Summary ---
Author Organization 175 [facility] Address [address] [place] [address] Phone Care Team Providers Care Manager Fast Food Name Role Phone Chiqui Cummings MD Primary Care Provider [phone] Allergies Active Allergy Reactions Criticality Noted Date Comments Bee Venom Protein (Honey Bee) 2017 Medications abatacept (ORENCIA) 25 mg/mL injection Inject 250 mg into the vein See Admin Instructions. 10/26/2018 Active albuterol HFA (PROAIR HFA ; PROVENTIL HFA ; VENTOLIN HFA) 90 mcg/actuation inhaler Inhale 2 Puffs into the lungs every 4 hours as needed for Cough or Wheezing. 07/10/2020 Active omeprazole (PriLOSEC) [address] capsule Take 1 Capsule by mouth daily for 360 days. 05/21/2022 Active polyethylene glycol 1000,bulk, powder DISSOLVE 17 GRAMS IN LIQUID AND TAKE BY MOUTH EVERY DAY 10/12/2022 Active losartan (COZAAR) 100 mg tablet Take 1 tablet (100 mg total) by mouth 1 (one) time each day. 90 tablet 5 09/27/2024 Active fluticasone-ume clidinium-vilan terol (Trelegy Ellipta) 200-62.5-25 mcg inhaler INHALE 1 PUFF INTO THE LUNGS DAILY 1 each 11 10/07/2024 10/07/20 25 Active ALPRAZolam (XANAX) 0.5 mg tablet Take 1 tablet (0.5 mg total) by mouth 3 (three) times a day if needed for anxiety. Max Daily Amount: 1.5 mg 56 tablet 1 11/12/2024 Active atorvastatin (LIPITOR) 20 mg tablet TAKE 1 TABLET BY MOUTH DAILY 90 tablet 3 01/22/2025 Active amLODIPine (NORVASC) 5 mg tablet Take 1 tablet (5 mg total) by mouth 1 (one) time each day. 30 each 5 03/12/2025 09/08/20 25 Active traMADoL (ULTRAM) 50 mg tablet Take 1 tablet (50 mg total) by mouth every 6 (six) hours if needed for severe pain. Max Daily Amount: 200 mg 28 tablet 05/11/2025 Active Active Problems Problem Noted Date Diagnosed Date Hyperlipidemia 07/29/2022 Hypertension 07/29/2022 Prediabetes 07/29/2022 Aorta aneurysm ([facility] V24) 12/02/2020 Colon polyps 05/07/2018 Lymphadenopathy, hilar 04/20/2018 Esophageal reflux 02/09/2017 Rosacea 02/09/2017 Rheumatoid arthritis ([facility] V24, [facility] V28) 02/09/2017 Vitamin D deficiency 01/30/2015 Anxiety 12/30/2013 Lower back pain 11/27/2013 Encounters Date Type Department Care Team Description 06/17/2025 Telephone Internal Medicine - [address] [place] [address] Chiqui Cummings MD from Last 3 Months Immunizations Name Administration Dates Next Due Influenza [...] attempted to quit: 04/12/2021 Smokeless Tobacco: Never Tobacco Cessation:Ready to Q uit: Not Asked; Counseling Given: Not Answered Alcohol Use Standard Drinks/Week Comments Yes 10 (1 standard drink = 0.6 oz pu re alcohol) Sex and Gender Information Value Date Recorded Sex Assigned at Not on file Legal Sex Male 10:43 AM EST Gender Identity Not on file Sexual Orientation Not on file Obstetrics History Last Filed Vital Signs Vital Sign Reading Time Taken Comments Blood Pressure 168/84 03/12/2025 9:45 AM EDT Pulse 82 03/12/2025 9:42 AM EDT Temperature 36.3 C (97.3 F) 03/12/2025 9:42 AM EDT Respiratory Rate - - Oxygen Saturation 97% 03/12/2025 9:42 AM EDT Inhaled Oxygen Concentration - - Weight 85.7 kg (189 lb) 03/12/2025 9:42 AM EDT Height 172.7 cm (5' 8 ) 09/09/2024 9:39 AM EST Body Mass Index 28.74 09/09/2024 9:39 AM EST Plan of Treatment Upcoming Encounters Date Type Department Care Team (Late st Contact Info) Description 06/26/2025 12:45 PM EDT Office Visit Internal Medicine - [place] [address] [phone] Chiqui Cummings MD [address] [place] [address] 06/26/2025 3:30 PM EDT Ancillary Procedure [facility] - [facility] [address] [facility] 101 [place] [address] 08/01/2025 4:45 PM EDT Appointment [facility] CT Scan [address] [place] [address] 08/07/2025 9:45 AM EDT Office Visit Pulmonolgy - [place] 175 [facility] 200 [place] [phone] Ines Magana MD [address] [place] [address] Health Maintenance Due Date Last Done Comments DTaP,Tdap,and Td Vaccines (1 - Tdap) 1974 Zoster Vaccines (1 of 2) 2005 RSV Immunization Adult Patients (1 - Risk 60-74 years 1-dose series) 2015 Pneumococcal Vaccine: 50+ Years (2 of 2 - PPSV23) 04/09/2018 02/12/2018 Social Influencers of Health Screening 09/24/2022 Hypertension/CHF/CAD Annual BMP Blood Test 07/31/2024 07/31/2023 Depression Screening 10/16/2024 09/09/2024, 08/17/20 COVID-19 Vaccine ( season) 2025 09/21/2021, 02/08/2021, 01/18/2021 Influenza Vaccine (#1) 2025 , 07/29/2022, 07/10/2020, Additional history exists Falls Risk Assessment 09/09/2025 09/09/2024 Medicare Annual Wellness Visit 09/09/2025 09/09/2024 Colorectal Cancer Screening: Colonoscopy 01/17/2029 01/18/2024 Cholesterol Screening (Lipid Panel) 03/12/2030 03/12/2025, 07/31/2023 Abdominal Aortic Aneurysm (AAA) Screen Completed 12/08/2021 Hepatitis C Screening Completed 07/31/2023 HIB Vaccines Aged Out No longer eligi [...] age to complete this topic Meningococcal B Vaccine Aged Out No l onger eligible based on patient's age to complete this topic RSV Immunization Patients Under 20 months Aged Out No longer eligible based on patient's age to complete this topic Varicella Vaccines Aged Out No longer eligible based on patient's age to complete this topic Procedures Procedure Name Priority Date/Time Associated Diagnosis Comments LIPID PANEL WITH REFLEX TO DIRECT LDL Routine 03/12/2025 10:24 AM EDT Mixed hyperlipidemia Primary hypertension Hyperglycemia COLONOSCOPY Routine 01/18/2024 DEPRESSION SCREENING Routine 08/17/2023 HEPATITIS C SCREENING Routine 07/31/2023 ANNUAL BMP BLOOD TEST Routine 07/31/2023 ABDOMINAL AORTIC ANEURYSM SCRREN Routine 12/08/2021 from Last 3 Months or Most Recently Relevant to Health Maintenance Results * Lipid panel with reflex to direct LDL (03/12/2025 10:24 AM EDT) Cholesterol 150 0 - 200 mg/dL LAB CHEMISTRY METHOD 03/12/2025 6:21 PM EDT [facility] Triglycerides 54 0 - 150 mg/dL LAB CHEMISTRY METHOD 03/12/2025 6:21 PM EDT [facility] HDL 61 >=40 mg/dL LAB CHEMISTRY METHOD 03/12/2025 6:21 PM EDT [facility] LDL Calculated 78 0 - 100 mg/dL LAB CHEMISTRY METHOD 03/12/2025 6:21 PM EDT [facility] VLDL Cholesterol Mario Alberto 10.8 mg/dL LAB CHEMISTRY METHOD 03/12/2025 6:21 PM T [facility] Non HDL Chol. (LDL+VLDL) 89 <145 mg/dL LAB CHEMISTRY METHOD 03/12/2025 6:21 PM EDT [facility] Chol/HDL Ratio 2.5 0.0 - 4.4 LAB CHEMISTRY METHOD 03/12/2025 6:21 PM T [facility] Blood Venous blood specimen / Unknown Venipuncture / Unknown 03/12/2025 10:24 AM EDT 03/12/2025 10:24 AM EDT us Chiqui Cummings MD LAB BLOOD ORDERABLES Final Res ult [facility] [address] [place] [address], * Colonoscopy (01/18/2024) Pathologist [facility] Colonoscopy NO INTERPRETATION , ABSTRACTED Anatomical Region Laterality Modality Other Historical Provider HEALTH MAINTENANCE Final Result * Depression Screening (08/17/2023) Pathologist [facility] Depression Screening ABSTRACTED Historical Provider MD HEALTH MAINTENANCE Final Result * Annual BMP Blood Test (07/31/2023) Pathologist [facility] Annual BMP Blood Test ABSTRACTED Historical Provider HEALTH MAINTENANCE Final Result * Hepatitis C Screening (07/31/2023) Pathologist [facility] Hepatitis C Screening ABSTRACTED [facility] Provider HEALTH MAINTENANCE Final Result * Abdominal Aortic Aneurysm Screen (12/08/2021) Pathologist [facility] Abdominal Aortic Aneurysm (AAA) Screening ABSTRACTED Anatomical Region Laterality Modality Other Historical Provider HEALTH MAINTENANCE Final Result from Last 3 Months or Most Recently Relevant to Health Maintenance Insurance [employer] MEDICAID - [place] Care Teams Manager Fast Food Relationship Specialty Start Date End Date Chiqui Cummings MD [address] [address] PCP - General Internal Medicine 08/28/20
--- OUTSIDE RECORDS SUMMARY | 2025-06-18 10:17 | XMS_ITS | Clinical Summary ---
Author Organization [facility] Address [address] [address] Phone Care Team Providers Care Tower Cleaner Name Role Phone Pcp, Unknown Primary Care Provider Unavailabl e Social History Tobacco Use Types Packs/Day Years Used Date Smoking Tobacco: Never Assessed Education Answer Date Recorded Are you interested in more education? Not on viral e 07/03/2023 Are you concerned about learning? Not on file 07/03/2023 No 07/03/2023 No 07/03/2023 Digital Access Answer Date Recorded No 07/03/2023 No 07/03/2023 Reliable internet access at home? Not on file 07/03/2023 Device with a working camera? Not on file Sex and Gender Information Value Date Recorded Sex Assigned at Not on file Legal Sex Male 2:29 PM EDT Gender Identity Not on file Sexual Orientation Not on file Plan of Treatment Health Maintenance Due Date Last Done Comments Adult Td,Tdap Booster 1955 LIPID PANEL 1955 DEPRESSION SCREENING 1967 SMOKING Hx and SMOKELESS TOB ACCO SCREENING 02/28/1968 HEPATITIS C SCREENING 1973 COLOGUARD 02/28/2000 COLONOSCOPY 02/28/2000 COLORECTAL CANCER SCREENING 02/28/2000 FIT TEST 02/28/2000 FOBT 02/28/2000 SIGMOIDOSCOPY 02/28/2000 VIRTUAL COLONOSCOPY 02/28/2000 PNEUMOCOCCAL VACCINES (50+ y ears) (1 of 1 - PCV) 2005 ZOSTER VACCINES (1 of 2) 2005 COVID-19 VACCINE ( - 2023-2 5 season) 2024 RSV VACCINE (1 - 1-dose 75+ series) 2030 HEPATITIS A VACCINES Aged Out No long er eligible based on patient's age to complete this topic HIB VACCINES Aged Out No longer eligi ble based on patient's age to complete this topic MENINGOCOCCAL VACCINES (ACWY) Aged Out No longer eligible based on patient's age to complete this topic MENINGOCOCCAL VACCINES (B) Aged Out N o longer eligible based on patient's age to complete this topic Medical Devices Not on file Insurance MEDICARE PREFERRED HMO REPLACEMENT MEDICARE PREFERRED HMO REPLACEMENT MEDICARE PREFERRED HMO REPLACEMENT MEDICARE PREFERRED HMO REPLACEMENT MEDICARE PREFERRED HMO [place] [address] [place] [address] MEDICARE PREFERRED HMO REPLACEMENT Care Teams Tower Cleaner Relationship Specialty Start Date End Date Pcp, Unknown PCP - General 06/30/23 Additional Source Comments The information contained in this document represents components of the legal health record. It is not the complete legal health record.[facility]
--- OUTSIDE RECORDS SUMMARY | 2025-06-18 10:17 | XMS_ITS | Clinical Summary ---
Author Organization [facility] Address [address] [place] [address] Care Team Providers Care Sewing Machine Attachment Tester Name Role Phone Chiqui Cummings MD Primary Care Provider [phone] Allergies No known active allergies Medications Medication [...] 80 06/30/2023 2:29 PM EDT Temperature 35.8 C (96.5 F) 06/30/2023 2:29 PM EDT Respiratory Rate 18 06/30/2023 2:29 PM EDT [...] or PCV20) 02/28/2020 02/12/2018 Influenza Vaccine (#1) 2025 2, 07/10/2020 RSV Adult > 60+ Yrs or (1 - 1-dose 75+ series) 2030 Hepatitis B Vaccines Aged Out No long er eligible based on patient's age to complete this topic RSV Ped < 20 months Aged Out No longe r eligible based on patient's age to complete this topic Care Teams Sewing Machine Attachment Tester Relationship Specialty Start Date End Date Chiqui Cummings MD [address] [place] [phone] PCP - General Internal Medicine 03/09/22
--- OUTSIDE RECORDS SUMMARY | 2025-06-18 10:18 | XMS_ITS ---
Author Name [facility] Organization Unknown Care Team Organization Name Specialty Phone Email Start Date End Da te [facility] Primary Care 08/23/2022 06/03/20 24
== END 2025-06-18 10:15 | disposition home or self-care (01) ==
LOC: HO.RHES 09:30
PROVIDERS: PCP Internal Medicine; Visit Provider Internal Medicine Rheumatology
DX: M06.9 Rheumatoid arthritis, unspecified (principal); Z79.899 Other long term (current) drug therapy; M25.511 Pain in right shoulder; M25.512 Pain in left shoulder
CPT/HCPCS: 99214; G2211

== ENCOUNTER 2025-07-10 10:23 | Outpatient (REF) | payer MEDICARE, SELFPAY ==
--- NOTE | ~2025-07-10 | XR_ITS ---
Examination: 4 view x-ray bilateral shoulders TECHNIQUE: 4 view x-ray upper extremity joints, bilateral shoulders INDICATION: M06.9 - Rheumatoid arthritis, unspecified Prior: None FINDINGS: Right shoulder: There is severe narrowing of the glenohumeral joint with subtle stress sclerotic changes in the subchondral bone. There are small moderate marginal osteophytes. AC joint demonstrates mild to moderate degenerative changes with marginal osteophytes. There are several moderate sized ossified bodies of varying size anterior to the proximal humeral diaphysis. Left shoulder: There is severe narrowing of the glenohumeral joint with mild subchondral sclerosis in the medial humeral head. There is also minimal degenerative cystic change. There are moderate to large marginal osteophytes. There is minimal degenerative osteophyte formation in the AC joint. There is faint periosteal new bone formation involving the medial and anterior proximal humeral diaphysis. XR/XR Shoulder Timo min 2V IMPRESSION: Right shoulder: Severe degenerative changes in the glenohumeral joint would be consistent with rheumatoid arthritis and secondary osteoarthritis. Secondary osteochondromatosis. There are multiple ossified bodies that could be in the subcoracoid recess or in the biceps tendon sheath. Left shoulder: There are severe degenerative changes that would be consistent with rheumatoid arthritis and secondary osteoarthritis. There is periosteal new bone formation along the anterior medial proximal humeral diaphysis of uncertain etiology. Periosteitis can be seen with psoriatic arthritis and stress fractures. No aggressive appearing bony lesion is visualized in this region. Electronically signed by: Robert Kingsley MD 07/10/2025 11:33 AM EDT
--- NOTE | ~2025-07-10 | XR_ITS ---
Exam: XR FOOT 3 OR MORE VIEWS BILATERAL, bilateral foot x-rays TECHNIQUE: AP, OBL and lateral views lower extremity, bilateral feet INDICATION: M06.9 - Rheumatoid arthritis, unspecified COMPARISON: None available. FINDINGS: RIGHT FOOT: There is lateral hallux valgus deformity. There is severe narrowing of the first MCP joint with marginal osteophytes and lateral subluxation of the proximal phalanx. There is patchy osteopenia involving the medial base of the proximal phalanx of the fifth digit and throughout the fifth metatarsal head. There is thinning of the cortical white line of the fourth metatarsal head in the region of the bare area. LEFT FOOT: There is mild hallux valgus deformity with mild to moderate asymmetric narrowing of the first MCP joint and marginal osteophytes. There is osteopenia with loss of the cortical white line involving the third metatarsal head and possibly the bare area of the fourth. There is also subtle erosion in the medial base of the proximal phalanx of third digit. There there is irregularity along the lateral second metacarpal head margin is well XR/XR Foot Timo 3V IMPRESSION: Right foot: Aggressive appearing erosive changes involving the fifth MTP joint and possibly the bare area of the fourth metatarsal head. Moderate hallux valgus deformity with severe osteoarthritis. Left foot: Aggressive erosive change involving the third MCP joint and minimally at the bare area of the fourth metatarsal head. Age-age indeterminate erosive change involving the lateral margin of the second metatarsal head. Mild hallux valgus deformity with moderate osteoarthritis. Electronically signed by: Robert Kingsley MD 07/10/2025 11:25 AM EDT
--- NOTE | ~2025-07-10 | XR_ITS ---
Exam: XR HAND 3 VIEWS BILATERAL, bilateral hand x-rays TECHNIQUE: AP, lateral, and oblique views upper extremity, bilateral hands INDICATION: M06.9 - Rheumatoid arthritis, unspecified COMPARISON: None available. FINDINGS: RIGHT HAND: Marginal osteophytes are present in the DIP and PIP joints of the second and third digits, first and second metacarpal heads, and minimally at the first CMC joint. There is subtle chondrocalcinosis in the third MCP joint. There is an erosion at the base of the fourth metacarpal and adjacent radial side of distal capitate. There is deepening of the lunate fossa in the distal radial articular surface. Scaphoid is small. There are osteophytes involving the proximal carpal row and radial and ulnar styloid. There is narrowing and sclerosis of the capital lunate joint. There is an ossification dorsal to the carpus. Lunate is distorted on the PA view and not well demonstrated on the lateral view. There is possible dorsal tilt of the lunate. LEFT HAND: There are marginal osteophytes involving the DIP joint of the second digit and DIP and PIP joints of the fourth digit and MCP joint of the first, second, and third digit. There is probable dorsal tilt of lunate which is not well-demonstrated on the lateral view. There is narrowing of the capital lunate joint and scaphoid joint with subchondral sclerosis. There is abutment of ulnar styloid and triquetrum. There is bony prominence along the radial side of the neck of the fifth proximal phalanx. There is focal osteopenia at the base of the fourth metacarpal. 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 Suspected erosion of the articulation of the fourth metacarpal with capitate suggests inflammatory arthropathy such as rheumatoid arthritis. Suspected DISI deformity. Left hand: Degenerative changes are more mild in the left hand. Pattern also favors CPPD arthropathy. There is questionable erosion of the base of the fourth metacarpal. Suspected DISI deformity. Electronically signed by: Robert Kingsley MD 07/10/2025 11:18 AM EDT
== END 2025-07-10 10:24 | disposition home or self-care (01) ==
LOC: HO.XRAY 10:23
PROVIDERS: PCP Internal Medicine; Visit Provider Internal Medicine Rheumatology
DX: M25.511 Pain in right shoulder (principal); M25.512 Pain in left shoulder; M06.9 Rheumatoid arthritis, unspecified
CPT/HCPCS: 73030; 73130; 73630

== ENCOUNTER → 2025-07-10 10:27 | Outpatient (BNV) | payer MEDICARE, SELFPAY | PROVIDERS: PCP Internal Medicine; Visit Provider Radiology Diagnostic Radiology | DX: M93.211 Osteochondritis dissecans, right shoulder (principal); M19.011 Primary osteoarthritis, right shoulder; M19.012 Primary osteoarthritis, left shoulder; M11.241 Other chondrocalcinosis, right hand; M19.041 Primary osteoarthritis, right hand; M19.042 Primary osteoarthritis, left hand; M20.11 Hallux valgus (acquired), right foot; M19.071 Primary osteoarthritis, right ankle and foot; M19.072 Primary osteoarthritis, left ankle and foot | CPT/HCPCS: 73030; 73130; 73630 ==

== ENCOUNTER 2025-09-19 13:30 | Outpatient (RCR) | payer MEDICARE, MEDICAID, SELFPAY ==
[2024-09-23 10:50] VITALS: BP 171/94; PULSE 87; RESP 20; TEMP 36.6; O2SAT 99
[2024-09-23] MEDS: 0.9 % Sodium Chloride Flush 10 ML SYRINGE 5 ML IVFLUSH (11:48)
[2024-10-22 10:21] VITALS: BP 163/80; PULSE 81; RESP 20; TEMP 36.2; O2SAT 100
[2024-10-23 10:55] VITALS: BP 135/82; PULSE 90; RESP 20; TEMP 36.6; O2SAT 99
[2024-10-23] MEDS: 0.9 % Sodium Chloride Flush 10 ML SYRINGE 5 ML IVFLUSH (12:21)
[2024-11-19 10:25] VITALS: BP 157/83; PULSE 78; RESP 16; TEMP 36.6; O2SAT 100
[2024-11-19] MEDS: 0.9 % Sodium Chloride Flush 10 ML SYRINGE 5 ML IVFLUSH (11:59)
[2024-12-17 10:24] VITALS: BP 150/86; PULSE 75; RESP 16; TEMP 36.5; O2SAT 100
[2024-12-17] MEDS: 0.9 % Sodium Chloride Flush 10 ML SYRINGE 5 ML IVFLUSH (11:38)
[2025-01-14 10:25] VITALS: BP 153/81; PULSE 74; RESP 16; TEMP 36.3; O2SAT 99
[2025-01-14] MEDS: 0.9 % Sodium Chloride Flush 10 ML SYRINGE 5 ML IVFLUSH (11:33)
[2025-02-11 10:28] VITALS: BP 169/84; PULSE 66; RESP 18; TEMP 36.4
[2025-03-20 10:31] VITALS: BP 167/84; PULSE 75; RESP 16; TEMP 36.6; O2SAT 99
[2025-04-17 11:23] VITALS: PULSE 80; RESP 20; TEMP 36.6; O2SAT 99
[2025-05-15 10:37] VITALS: BP 152/83; PULSE 72; RESP 16; TEMP 36.6; O2SAT 100
[2025-06-12 10:42] VITALS: BP 161/91; PULSE 77; RESP 16; TEMP 36.6; O2SAT 98
[2025-07-10 11:03] VITALS: BP 153/74; PULSE 85; RESP 16; TEMP 36.7; O2SAT 99
[2025-08-11 10:03] VITALS: BP 154/90; PULSE 77; RESP 16; TEMP 36.6; O2SAT 100
[2025-09-19 13:21] VITALS: BP 169/77; PULSE 71; RESP 16; TEMP 36.4; O2SAT 99
== END 2025-10-03 13:48 | disposition home or self-care (01) ==
LOC: HO.INF 13:30
PROVIDERS: PCP Internal Medicine; Visit Provider Internal Medicine Rheumatology
DX: M06.9 Rheumatoid arthritis, unspecified (principal); Z79.899 Other long term (current) drug therapy
CPT/HCPCS: 96365; J0129

== ENCOUNTER 2025-09-24 10:17 | Outpatient (REF) | payer MEDICARE, SELFPAY ==
[2025-09-24 13:52] LABS: MANUAL DIFF FLAG NO
[2025-09-24 14:02] LABS: Hematocrit 36.9 % (42.0-52.0); Hemoglobin 13.0 g/dl (14.0-18.0); Imm Gran Abs Auto 0.01 X10*3/uL (0.00-0.03); Imm Gran Pct Auto 0.2 % (0.0-0.4); Lymphocytes Absolute Auto 1.9 X10*3/uL (1.2-4.9); Mean Corpuscular HGB Conc 35.2 g/dl (31.0-36.0); Mean Corpuscular Hemoglobin 30.6 pg (27.0-33.0); Mean Corpuscular Volume 86.8 fL (80.0-98.0); NRBC Abs Auto 0.000 X10*3/uL (0.0-0.012); NRBC Pct Auto 0.0 /100WBC (0.0-0.2); Platelet Count 289 X10*3/uL (160-400); Red Blood Count 4.25 X10*6/uL (4.60-5.80); White Blood Count 5.1 X10*3/uL (4.8-10.8)
[2025-09-24 14:25] LABS: Alanine Aminotransferase 20 U/L (0-40); Aspartate Amino Transferase 23 U/L (5-37); Estimated Glomerular Filt Rate > 60
== END 2025-09-24 10:18 | disposition home or self-care (01) ==
LOC: HO.HKASLDS 10:17
PROVIDERS: PCP Internal Medicine; Visit Provider Internal Medicine Rheumatology
DX: Z79.899 Other long term (current) drug therapy (principal)
CPT/HCPCS: 36415; 82565; 84450; 84460; 85025; 85652; 86140

== ENCOUNTER 2025-09-30 09:12 | Outpatient (AMB) | payer MEDICARE, SELFPAY ==
--- NOTE | 2025-09-30 09:18 | MHC.OFFVIS ---
Vital Signs 09/30/25 09:19 Height 5 ft 8 in Weight 208 lb 5.389 oz BMI 31.7 BP 130/76 Blood Pressure Location Rt brachial Position Sitting Pulse 75 Pulse Source Pulse Oximeter Pulse Oximetry (%) 98 Oxygen Delivery Method Room Air Intake Visit Reasons: 3 Months Intake Note: Patient presents for RA. Accompanied by: Self / Same As Patient Allergies No Known Allergies Allergy (Verified 09/30/25 09:19) HPI HPI 3 Months: Details: His joints are swollen. Orencia is working for 2 weeks. He has less pain on Orencia but the joints have worsened. He attributes worsening joint swelling to the cold weather. Morning stiffness is lasting all day. No recent infections. He completed PT for shoulder strengthening. He denies any abdominal discomfort, diarrhea or nausea. He was prescribed a medication that has alleviated his GI symptoms. [facility] Surgical History History of appendectomy History of surgery on right wrist Family History Mother History of arthritis Father History of COPD Social History Household Members: None Housing: House Alcohol intake: current Comment: OCC Patient Tobacco Use Status: Current someday Tobacco user Tobacco use type: Cigarette Cigarettes Per Day: 0.25 Years Smoked: 40 Physical Exam Vital Signs: Last Vital Signs Pulse 75 09/30/25 09:19 BP 130/76 09/30/25 09:19 Pulse Ox 98 09/30/25 09:19 Oxygen Delivery Method Room Air 09/30/25 09:19 BMI result Body Mass Index 31.7 Const Other: General: Comfortable CVS: RRR Respiratory: clear to auscultation bilaterally. Good respiratory effort Skin: No lesions seen MSK: Synovitis of bilateral right 2nd and 3rd MCPs, bilateral PIPs. Tender right 4th MCP, 2nd 5th PIP. Dorsal wrist right ganglion cyst present. He is able to make a fist with both hands. Shoulder abduction 160 degrees bilateral. Tender bilateral shoulders. Knee flexion is 90 degrees limited due to pain. No MTP tenderness. Assessment & Plan Assessment & Plan (1) Rheumatoid arthritis: Comment: Inflammatory arthritis is uncontrolled on monotherapy with Orencia. He has secondary treatment failure on Orencia. He is 94 lb and is on maximum weight based dose 750 mg every 4 weeks. We discussed next steps with TNF inhibitor. High disease activity. I prefer Remicade over alternative DMARD therapies. We discuss benefit of dosing regimen adjustments with Remicade to control his inflammatory arthritis, prevent progression of disease and irreversible damage leading to limited function and disability. He is receiving temporary benefit with Depo-Medrol. Rheumatology history: History of rheumatoid arthritis failed methotrexate and was well controlled on Orencia infusion since 2016. In the past he did not tolerate leflunomide, which he took from 02/03/2024 to 03/04/2024 due to constipation. He has been fearful of long-term side effect on prednisone. Depo-Medrol provided benefit in the past. Code(s): M06.9 - Rheumatoid arthritis, unspecified Category: Medical Plan: Continue Orencia infusion every 4 weeks IV Remicade PA. As soon as Remicade is approved, it will replace Orencia. Labs for disease monitoring and drug monitoring on high-risk medication up-to-date Information on DMARD therapy given to patient Holding off on Depo-Medrol this visit unless pain worsens Return to clinic in 3 months or sooner if needed (2) Other prison (current) drug therapy: Code(s): Z79.899 - Other keno terminal operator (current) drug therapy Category: Medical Plan: See above Orders: Referrals Infusion Center Notification M06.9 - Rheumatoid arthritis, unspecified, Z79.899 - Other keno terminal operator (current) drug therapy Coding Level of Care Code Est Pt Level 4 (72482) Add On Problem Visit Only Diagnoses Rheumatoid arthritis M06.9 Other keno terminal operator (current) drug therapy Z79.899
[2025-09-30 09:19] VITALS: BP 130/76; PULSE 75; O2SAT 98; BMI 31.7
--- OUTSIDE RECORDS SUMMARY | 2025-09-30 10:31 | XMS_ITS | Clinical Summary ---
Author Organization [facility] Address [address] [address] Phone Care Team Providers Care Poultry Buyer Name Role Phone Pcp, Unknown Primary Care [...] 2005 ZOSTER VACCINES (1 of 2) 2005 INFLUENZA VACCINE (#1) 2025 COVID-19 VACCINE (1 - 2024-2 6 season) 2025 RSV VACCINE (1 - 1-dose 75+ series) [...] topic Medical Devices Not on file Insurance [employer] RE[employer] MEDICARE PREFERRED HMO REPLACEMENT MEDICARE PREFERRED HMO REPLACEMENT MEDICARE PREFERRED HMO REPLACEMENT Care Teams Poultry Buyer Relationship Specialty Start Date End Date Pcp, Unknown PCP - General 06/30/23 Additional Source Comments The information contained in this document represents components of the legal health record. It is not the complete legal health record.[facility]
--- OUTSIDE RECORDS SUMMARY | 2025-09-30 10:31 | XMS_ITS | Clinical Summary ---
Author Organization [facility] Prior to 03/15/25 Address [address] [place] [address] Care Team Providers Care Lead Rider Name Role Phone Chiqui Cummings MD Primary Care Provider [phone] Allergies No known active allergies Medications Medication [...] age to complete this topic Care Teams Lead Rider Relationship Specialty Start Date End Date Chiqui Cummings MD [address] [place] [id number] PCP - General Internal Medicine 03/09/22
--- OUTSIDE RECORDS SUMMARY | 2025-09-30 10:32 | XMS_ITS | Clinical Summary ---
Author Organization [facility] Address [address] [place] [address] Phone Care Team Providers Care Housekeeper Name Role Phone Chiqui Cummings MD Primary Care Provider [phone] Allergies Active Allergy Reactions Criticality Noted Date [...] TAKE BY MOUTH EVERY DAY 10/12/2022 Active fluticasone-ume clidinium-vilan terol (Trelegy Ellipta) 200-62.5-25 mcg inhaler INHALE 1 PUFF INTO THE LUNGS DAILY 1 each 10/07/2024 10/07/20 25 Active ALPRAZolam (XANAX) 0.5 mg tablet Take 1 tablet (0.5 mg total) by mouth 3 (three) times a day if needed for anxiety. Max Daily Amount: 1.5 mg 56 tablet 1 11/12/2024 Active docusate sodium (Colace) 100 mg capsule Take 1 capsule (100 mg total) by mouth 2 (two) times a day. 60 each 3 06/26/2025 Active amLODIPine (NORVASC) 5 mg tablet Take 1 tablet (5 mg total) by mouth 1 (one) time each day. 90 each 3 06/26/2025 Active atorvastatin (LIPITOR) 20 mg tablet Take 1 tablet (20 mg total) by mouth 1 (one) time each day. 90 tablet 3 06/26/2025 Active losartan (COZAAR) 100 mg tablet Take 1 tablet (100 mg total) by mouth 1 (one) time each day. 90 tablet 5 06/26/2025 Active traMADoL (ULTRAM) 50 mg tablet Take 1 tablet (50 mg total) by mouth every 6 (six) hours if needed for severe pain. Max Daily Amount: 200 mg 28 tablet 07/28/2025 Active clotrimazole-be tamethasone (LOTRISONE) 1-0.05 % cream Apply thin layer to affected area BID for 2 weeks then stop. Avoid face and groin. 30 g 08/14/2025 Active Active Problems Problem Noted Date Diagnosed Date Hyperlipidemia 07/29/2022 Assessment & Plan (06/26/2025 1:10 PM EDT): Hypertension 07/29/2022 Assessment & Plan (06/26/2025 1:10 PM EDT): Prediabetes 07/29/2022 Aorta aneurysm 12/02/2020 Colon polyps 05/07/2018 Lymphadenopathy, hilar 04/20/2018 Esophageal reflux 02/09/2017 Rosacea 02/09/2017 Rheumatoid arthritis 02/09/2017 Assessment & Plan (06/26/2025 1:10 PM EDT): Vitamin D deficiency 01/30/2015 Anxiety 12/30/2013 Lower back pain 11/27/2013 Encounters Date Type Department Care Team Description 08/28/2025 Telephone Internal Medicine - [address] [phone] Keenan Sabillon [place] 08/14/2025 Telephone Internal Medicine [address] [phone] Keenan Sabillon [place] 08/07/2025 9:45 AM EDT Office Visit Pulmonology - [place] [facility] [address] [place] [address] Ines Magana MD Chronic obstructive pulmonary disease, unspecified COPD type (CMS/HCC V24, CMS/HCC V28) (Primary Dx) 08/04/2025 8:52 AM EDT - 08/04/2025 11:59 PM EDT Hospital Encounter [facility] CT Scan [address] [place] [phone] Encounter for screening for lung cancer; Cigarette smoker Discharge Disposition: Home or Self Care 08/01/2025 Telephone Internal Medicine - [place] [facility] [address] [place] [phone] Chiqui Cummings MD 07/31/2025 Telephone [facility] - [address] [place] [phone] Chiqui Cummings MD 07/15/2025 Telephone Lung Screening Program - [place] [address] [facility] [address] [place] [phone] Ariana Arce MA from Last 3 Months Immunizations Immunization Administration Dates Next Due Influenza trivalent, 0.5mL [...] Types Packs/Day Years Used Date Smoking Tobacco: Former Cigarettes 0 Q uit: 04/12/2021 Smokeless Tobacco: Never Tobacco Cessation:Counseling Given: Not Answered Comments:Quit smoking 07/15/25 Alcohol Use Standard Drinks/Week Comments Yes 10 (1 standard drink = 0.6 oz pu re alcohol) Sex and Gender Information Value Date Recorded Sex Assigned at Not on file Legal Sex Male 10:43 AM EST Gender Identity Not on file Sexual Orientation Not on file Last Filed Vital Signs Vital Sign Reading Time Taken Comments Blood Pressure 136/76 08/07/2025 9:45 AM EDT Pulse 82 08/07/2025 9:45 AM EDT Temperature 36.4 C (97.6 F) 08/07/2025 9:45 AM EDT Respiratory Rate 16 08/07/2025 9:45 AM EDT Oxygen Saturation 98% 08/07/2025 9:45 AM EDT Inhaled Oxygen Concentration - - Weight 91.2 kg (201 lb) 08/07/2025 9:45 AM EDT Height 177.8 cm (5' 10 ) 08/07/2025 9:45 AM EDT Body Mass Index 28.84 08/07/2025 9:45 AM EDT Plan of Treatment Upcoming Encounters Date Type Department Care Team (Late st Contact Info) Description 11/12/2025 11:15 AM EST Office Visit Internal Medicine - [address] [place] [address] Chiqui Cummings MD [address] [place] [phone] Health Maintenance Due Date Last Done Comments Drug Screen 1955 Naloxone Order 1955 Non-Opioid Controlled Substance Agreement 1955 Opioid Substance Agreement 1955 Pain Assessment 1955 DTaP,Tdap,and Td Vaccines (1 - Tdap) 1974 RSV Immunization Adult Patients (1 - Risk 50-74 years 1-dose series) 2005 Zoster Vaccines (1 of 2) 2005 Pneumococcal Vaccine: 50+ Years (2 of 2 - PPSV23, PCV20, or PCV21) 04/09/2018 02/12/2018 Social Influencers of Health Screening 09/24/2022 Hypertension/CHF/CAD Annual BMP Blood Test 07/31/2024 07/31/2023 COVID-19 Vaccine ( season) 2025 09/21/2021, 02/08/2021, 01/18/2021 Falls Risk Assessment 09/09/2025 09/09/2024 Medicare Annual Wellness Visit 06/26/2026 06/26/2025 Colorectal Cancer Screening: Colonoscopy 01/17/2029 01/18/2024 Cholesterol Screening (Lipid Panel) 03/12/2030 03/12/2025, 07/31/2023 Abdominal Aortic Aneurysm (AAA) Screen Completed 12/08/2021 Hepatitis C Screening Completed 07/31/2023 Depression Screening Completed 06/26/2025, 08/17/20 Influenza Vaccine Completed 07/30/2025, , 07/29/2022, Additional history exists HIB Vaccines Aged Out [...] Procedure Name Priority Date/Time Associated Diagnosis Comments EXTERNAL CLINICAL LAB 09/24/2025 CT LUNG SCREENING Routine 08/04/2025 9:0 5 AM EDT Encounter for screening for lung cancer Cigarette smoker LIPID PANEL WITH REFLEX TO DIRECT LDL Routine 03/12/2025 10:24 AM EDT Mixed hyperlipidemia Primary hypertension Hyperglycemia COLONOSCOPY Routine 01/18/2024 DEPRESSION SCREENING Routine 08/17/2023 HEPATITIS C SCREENING Routine 07/31/2023 ANNUAL BMP BLOOD TEST Routine 07/31/2023 ABDOMINAL AORTIC ANEURYSM SCRREN Routine 12/08/2021 from Last 3 Months or Most Recently Relevant to Health Maintenance Results * External clinical lab (09/24/2025) us Provider [facility] LAB BLOOD ORDERABLES Fin al Result * CT Lung Screening (08/04/2025 9:05 AM EDT) Anatomical Region Laterality Modality Chest Computed Tomogra phy 08/12/2025 12:1 6 PM EDT Impressions 08/12/2025 12:57 PM EDT No new or suspicious pulmonary nodules. Lung RADS 2-benign. Recommend continued screening with low-dose chest CT in 12 months. -------- FINAL REPORT -------- Dictated By: REUBEN CARLOS Dictated Date: 08/12/2025 12:16 ET Assigned Physician: REUBEN CARLOS Reviewed and Electronically Signed By: REUBEN CARLOS Signed Date: 08/12/2025 12:57 ET Workstation ID: [id number] Transcribed By: Self Edit Transcribed Date: 08/12/2025 12:16 ET Narrative 08/12/2025 12:57 PM EDT PROCEDURE: Chest CT INDICATION: Lung cancer screening, current smoker, 82.5 pack year smoking history TECHNIQUE: Chest CT without contrast. Multi planar reformats were created and interpreted. The examination was performed utilizing dose reduction techniques. Total DLP 170 COMPARISON: 07/20/2024 FINDINGS: LUNGS/PLEURA: Central airways are patent. Mild emphysema with chronic bronchitis. Stable fissural nodule in the right lower lobe measuring 4 mm along the confluence of the minor and major fissures. No new or suspicious pulmonary nodules. No pleural effusion or pneumothorax. MEDIASTINUM: Thyroid gland is unremarkable. No mediastinal or hilar lymphadenopathy. Cardiac chambers are normal in size. No pericardial effusion. Esophagus is normal. Moderate coronary artery calcifications. CHEST WALL: No axillary lymphadenopathy or superficial hematoma. UPPER ABDOMEN:Calcified upper abdominal lymph nodes are unchanged and indicative of prior granulomatous exposure. BONES: No acute fracture. Scattered degenerative changes seen throughout the bones. Procedure Note Reuben Carlos MD - 08/12/2025 PROCEDURE: Chest CT INDICATION: Lung cancer screening, current smoker, 82.5 pack year smokinghistory TECHNIQUE: Chest CT without contrast. Multi planar reformats were createdand interpreted. The examination was performed utilizing dose reductiontechniques. Total DLP 170 COMPARISON: 07/20/2024 FINDINGS: LUNGS/PLEURA: Central airways are patent. Mild emphysema with chronicbronchitis. Stable fissural nodule in the right lower lobe measuring 4 mmalong the confluence of the minor and major fissures. No new orsuspicious pulmonary nodules. No pleural effusion or pneumothorax. MEDIASTINUM: Thyroid gland is unremarkable. No mediastinal or hilarlymphadenopathy. Cardiac chambers are normal in size. No pericardialeffusion. Esophagus is normal. Moderate coronary artery calcifications. CHEST WALL: No axillary lymphadenopathy or superficial hematoma. UPPER ABDOMEN:Calcified upper abdominal lymph nodes are unchanged andindicative of prior granulomatous exposure. BONES: No acute fracture. Scattered degenerative changes seen throughoutthe bones. IMPRESSION: No new or suspicious pulmonary nodules. Lung RADS 2-benign. Recommendcontinued screening with low-dose chest CT in 12 months. -------- FINAL REPORT -------- Dictated By: REUBEN CARLOS Dictated Date: 08/12/2025 12:16 ET Assigned Physician: REUBEN CARLOS Reviewed and Electronically Signed By: REUBEN CARLOS Signed Date: 08/12/2025 12:57 ET Workstation ID: [id number] Transcribed By: Self Edit Transcribed Date: 08/12/2025 12:16 ET us Kaylee Bedolla MD [facility] [place] Final Result * Lipid panel with reflex to direct LDL (03/12/2025 10:24 AM EDT) Cholesterol 150 0 - 200 mg/dL LAB CHEMISTRY METHOD 03/12/2025 6:21 PM EDT [facility] Triglycerides 54 0 - 150 mg/dL LAB CHEMISTRY METHOD 03/12/2025 6:21 PM EDT [facility] HDL 61 >=40 mg/dL LAB CHEMISTRY METHOD 03/12/2025 6:21 PM EDT [facility] LDL Calculated 78 0 - 100 mg/dL LAB CHEMISTRY METHOD 03/12/2025 6:21 PM EDT [facility] VLDL Cholesterol Mario Alberto 10.8 mg/dL LAB CHEMISTRY METHOD 03/12/2025 6:21 PM EDT [facility] Non HDL Chol. (LDL+VLDL) 89 <145 mg/dL LAB CHEMISTRY METHOD 03/12/2025 6:21 PM EDT [facility] Chol/HDL Ratio 2.5 0.0 - 4.4 LAB CHEMISTRY METHOD 03/12/2025 6:21 PM T [facility] Blood Venous blood specimen / Unknown Venipuncture / Unknown 03/12/2025 10:24 AM EDT 03/12/2025 10:24 AM EDT Chiqui Cummings MD LAB BLOOD ORDERABLES Final Res ult [facility] [address] [place] [address], * Colonoscopy (01/18/2024) [facility] Colonoscopy NO INTERPRETATION , ABSTRACTED Anatomical Region Laterality Modality Other [facility] Provider HEALTH MAINTENANCE Final Result * Depression Screening (08/17/2023) [facility] Depression Screening ABSTRACTED [facility] Provider HEALTH MAINTENANCE Final Result * Annual BMP Blood Test (07/31/2023) [facility] Annual BMP Blood Test ABSTRACTED [facility] Provider HEALTH MAINTENANCE Final Result * Hepatitis C Screening (07/31/2023) [facility] Hepatitis C Screening ABSTRACTED [facility] Provider HEALTH MAINTENANCE Final Result * Abdominal Aortic Aneurysm Screen (12/08/2021) Abdominal Aortic Aneurysm (AAA) Screening ABSTRACTED Anatomical Region Laterality Modality Other us Historical Provider HEALTH MAINTENANCE Final Result from Last 3 Months or Most Recently Relevant to Health Maintenance Insurance [employer] Care Teams Housekeeper Relationship Specialty Start Date End Date Chiqui Cummings MD [address] [phone] PCP - General Internal Medicine 08/28/20
== END 2025-09-30 09:59 | disposition home or self-care (01) ==
LOC: HO.RHES 09:13
PROVIDERS: PCP Internal Medicine; Visit Provider Internal Medicine Rheumatology
DX: M06.9 Rheumatoid arthritis, unspecified (principal); Z79.899 Other long term (current) drug therapy
CPT/HCPCS: 99214; G2211

== ENCOUNTER → 2025-09-30 09:12 | Outpatient (BNVA) | payer MEDICARE, SELFPAY | PROVIDERS: PCP Internal Medicine; Visit Provider Internal Medicine Rheumatology | DX: M06.9 Rheumatoid arthritis, unspecified (principal); Z79.620 Long term (current) use of immunosuppressive biologic; Z79.899 Other long term (current) drug therapy | CPT/HCPCS: 99212 ==